=== PATIENT | female | born 1980 | race Caucasian/White ===

== ENCOUNTER 2020-08-13 10:13 | Emergency (ER) | payer MEDICAID ==
[~2020-08-13] VITALS: Ht 152.4 cm; Wt 89.0 kg
[2020-08-13] MEDS ORDERED: ACETAMINOPHEN 500 MG TABLET PO ONE (11:45)
[2020-08-13] MEDS ORDERED: CEPHALEXIN MONOHYDRATE 500 MG CAPSULE PO ONE (11:45)
[2020-08-13] MEDS ORDERED: SULFAMETHOX/TRIMETH DS 800-160 MG/TABLET PO ONE (11:45)
[2020-08-13] MEDS ORDERED: KETOROLAC TROMETHAMINE 60 MG/2 ML VIAL IM ONE (11:45)
[2020-08-13 13:25] VITALS: BP 134/61
== END 2020-08-13 13:36 | disposition home or self-care (01) ==
LOC: EMS 10:13
DX: L03.116 Cellulitis of left lower limb (principal); I10 Essential (primary) hypertension
CPT/HCPCS: 96372; 99284; J1885

== ENCOUNTER 2020-08-16 11:04 | Emergency (ER) | payer MEDICAID ==
[~2020-08-16] VITALS: Ht 152.4 cm; Wt 90.9 kg
[2020-08-16] MEDS ORDERED: LIDOCAINE 1%/EPI 1:200,000/PF 10 ML VIAL INJ ONE (12:15)
[2020-08-16] MEDS ORDERED: POVIDONE-IODINE 10% 15 ML SOLUTION UD TP ONE (12:45)
[2020-08-16 13:00] VITALS: BP 122/78
== END 2020-08-16 13:30 | disposition home or self-care (01) ==
LOC: EMS 11:07
DX: L03.116 Cellulitis of left lower limb (principal)
CPT/HCPCS: 10060; 99282; J3490

== ENCOUNTER 2020-08-18 10:38 | Emergency (ER) | payer MEDICAID ==
[~2020-08-18] VITALS: Ht 160 cm; Wt 77.3 kg
[2020-08-18 10:40] VITALS: BP 150/84
[2020-08-18 12:47] LABS: GLUCOSE,POINT OF CARE 108 MG/DL (70-110)
== END 2020-08-18 13:14 | disposition home or self-care (01) ==
LOC: EMS 10:42
DX: L03.116 Cellulitis of left lower limb (principal); I10 Essential (primary) hypertension

== ENCOUNTER 2023-08-29 23:40 | Emergency (ER) | payer MEDICAID ==
[~2023-08-29] VITALS: Ht 152.4 cm; Wt 86.8 kg
[2023-08-29 23:44] VITALS: TEMP 98.1
[2023-08-29] MEDS ORDERED: ATOR20TA65 PO (23:56)
[2023-08-29] MEDS ORDERED: SEMA1PEN3 SQ (23:56)
[2023-08-30] MEDS ORDERED: HYDROCODONE/ACETAMINOPHEN 5-325 MG TABLET PO ONE (00:30)
[2023-08-30] MEDS ORDERED: NITROGLYCERIN 2% (1 GM=INCH) OINTMENT PACKET TP ONE (00:30)
[2023-08-30] MEDS ORDERED: CloNIDine HCL 0.2 MG TABLET PO ONE (00:30)
[2023-08-30 01:26] VITALS: BP 197/98; PULSE 56; RESP 20
== END 2023-08-30 03:10 | disposition home or self-care (01) ==
LOC: EMS 23:42
DX: S09.90XA Unspecified injury of head, initial encounter (principal); I10 Essential (primary) hypertension; E11.9 Type 2 diabetes mellitus without complications; E78.00 Pure hypercholesterolemia, unspecified; Z98.890 Other specified postprocedural states; W01.0XXA Fall on same level from slipping, tripping and stumbling without subsequent striking against object, initial encounter; Y93.66 Activity, soccer; Y92.89 Other specified places as the place of occurrence of the external cause; Y99.8 Other external cause status
CPT/HCPCS: 70450; 72125; 82962; 99284